=== PATIENT | female | born 1995 | race African-American/Black ===

== ENCOUNTER 2018-10-12 19:03 | Emergency (ER) | payer OTHER ==
[~2018-10-12] VITALS: Ht 167.6 cm; Wt 61.2 kg
[2018-10-12 19:36] LABS: URINE BILIRUBIN NEGATIVE (Negative); URINE BLOOD NEGATIVE (Negative); URINE CLARITY CLEAR; URINE COLOR YELLOW; URINE GLUCOSE-RANDOM* NEGATIVE (Negative); URINE KETONES NEGATIVE (Negative); URINE LEUKOCYTES-REFLEX NEGATIVE (Negative); URINE NITRITE-REFLEX NEGATIVE (Negative); URINE PROTEIN (DIPSTICK) NEGATIVE (Negative); URINE UROBILINOGEN 0.2 E.U./dl (0.2-1.0)
[2018-10-12 19:42] LABS: ABSOLUTE NEUTROPHILS 3.3 thou/uL (1.4-8.2); BASOPHILS 1.1 % (0.0-2.0); EOSINOPHILS 1.1 % (0.0-3.0); HEMATOCRIT 39.4 % (37.0-47.0); HEMOGLOBIN 13.5 gm/dL (12.0-15.0); LYMPHOCYTES 36.1 % (24.0-44.0); MCH 30.2 pg (26.0-34.0); MCHC 34.3 g/dL (28.0-37.0); MONOCYTES 10.2 % (1.0-8.0); PLATELET COUNT 188 thou/uL (150-400); POLYS 51.5 % (36.0-66.0); RBC 4.48 mil/uL (4.20-5.00); RDW 13.2 % (10.5-14.5); WBC 6.4 thou/uL (4.0-11.0)
[2018-10-12 19:48] LABS: CALCIUM 9.2 mg/dL (8.5-10.1); CREATININE 0.7 mg/dL (0.6-1.0); POTASSIUM 3.9 mmol/L (3.5-5.1)
[2018-10-12 19:54] LABS: ALBUMIN 4.1 g/dL (3.4-5.0); TOTAL BILIRUBIN 0.5 mg/dL (<0.1-1.0); TOTAL PROTEIN 7.6 g/dL (6.4-8.2)
[2018-10-12] MEDS ORDERED: FIBERCON625 MG PO (20:09)
[2018-10-12] MEDS ORDERED: ZOFRAN ODT4 MG PO (20:09)
[2018-10-12] MEDS ORDERED: PROTONIX40 M1 PO (20:09)
[2018-10-12 20:27] VITALS: BP 113/64
== END 2018-10-12 20:27 | disposition home or self-care (01) ==
LOC: ER 19:03
PROVIDERS: Emergency Medicine
DX: K59.00 Constipation, unspecified (principal); R11.2 Nausea with vomiting, unspecified

== ENCOUNTER 2018-11-05 06:50 | Emergency (ER) | payer OTHER ==
[~2018-11-05] VITALS: Ht 167.6 cm; Wt 61.2 kg
[~2018-11-05 06:50] MED LIST: FIBERCON625 MG PO; PROTONIX40 M1 PO; ZOFRAN ODT4 MG PO
[2018-11-05 06:53] VITALS: BP 113/70
[2018-11-05 07:16] LABS: URINE BILIRUBIN NEGATIVE (Negative); URINE BLOOD TRACE (Negative); URINE CLARITY CLEAR; URINE COLOR YELLOW; URINE GLUCOSE-RANDOM* NEGATIVE (Negative); URINE KETONES NEGATIVE (Negative); URINE LEUKOCYTES-REFLEX NEGATIVE (Negative); URINE NITRITE-REFLEX NEGATIVE (Negative); URINE PROTEIN (DIPSTICK) NEGATIVE (Negative); URINE UROBILINOGEN 0.2 E.U./dl (0.2-1.0)
[2018-11-05] MEDS ORDERED: PREDNISONE 20 M20 MG PO (07:39)
== END 2018-11-05 07:55 | disposition home or self-care (01) ==
LOC: ER 06:50
PROVIDERS: Emergency Medicine
DX: N76.0 Acute vaginitis (principal)

== ENCOUNTER 2018-11-16 19:51 | Emergency (ER) | payer OTHER ==
[~2018-11-16] VITALS: Ht 167.6 cm; Wt 59.0 kg
[~2018-11-16 19:51] MED LIST changes: +PREDNISONE 20 M20 MG PO
[2018-11-16 21:56] LABS: ABSOLUTE NEUTROPHILS 2.8 thou/uL (1.4-8.2); BASOPHILS 1.4 % (0.0-2.0); EOSINOPHILS 1.4 % (0.0-3.0); LYMPHOCYTES 38.9 % (24.0-44.0); MCHC 34.3 g/dL (28.0-37.0); MCV 87.4 fL (80.0-100.0); MONOCYTES 7.9 % (1.0-8.0); PLATELET COUNT 188 thou/uL (150-400); POLYS 50.4 % (36.0-66.0); RBC 4.34 mil/uL (4.20-5.00); RDW 12.5 % (10.5-14.5); WBC 5.6 thou/uL (4.0-11.0)
[2018-11-16 22:06] LABS: ANION GAP 7 mmol/L (7-16); BUN 12 mg/dL (7-18); CHLORIDE 106 mmol/L (98-107); CO2 27 mmol/L (21-32); CREATININE 0.9 mg/dL (0.6-1.0); GLUCOSE 89 mg/dL (74-106); POTASSIUM 4.2 mmol/L (3.5-5.1); SODIUM 140 mmol/L (136-145)
[2018-11-16 22:12] LABS: ALBUMIN 3.8 g/dL (3.4-5.0); DIRECT BILIRUBIN < 0.1 mg/dL (<0.1-0.3); LIPASE 98 U/L (73-393); SGOT 11 U/L (15-37); SGPT 15 U/L (30-65); TOTAL BILIRUBIN 0.2 mg/dL (<0.1-1.0); TOTAL PROTEIN 7.2 g/dL (6.4-8.2)
[2018-11-16 23:22] VITALS: BP 108/70
--- NOTE | 2018-11-17 13:20 | EKG ---
[address] [address] ELECTROCARDIOGRAM REPORT Name: FANY BLACK Room #: DEP [facility]#: [id number] Admission: 11/16/18 Attend Phys: Discharge: 11/16/18 Date of : [birth year] Report #: [id number] THIS REPORT FOR: //name// [facility] ED Test Date: 2018-11-16 Test Time: 21:39:11 Pat Name: FANY BLACK Department: Room: Gender: F Pattern Scratcher: MAYRA : 1995 Requested By: Jenn Coley Order Number: [id number] MD: Luciano Pittman Measurements Intervals Bruce Rate: 63 P: 56 IL: 191 QRS: 58 QRSD: 81 T: 54 QT: 389 QTc: 399 Interpretive Statements Sinus rhythm RSR' in V1 or V2, probably normal variant No previous ECG available for comparison Electronically Signed On 11-17-2018 13:20:06 CDT by Luciano Pittman [email or web address] <ELECTRONICALLY SIGNED> By: Luciano Pittman MD, [facility] 11/17/18 1320 2139 38 Luciano Pittman MD, FACC /EPI
== END 2018-11-16 23:26 | disposition home or self-care (01) ==
LOC: ER 19:51
PROVIDERS: Emergency Medicine
DX: K62.5 Hemorrhage of anus and rectum (principal); R00.2 Palpitations; R07.89 Other chest pain; N92.0 Excessive and frequent menstruation with regular cycle

== ENCOUNTER 2018-11-25 09:54 | Emergency (ER) | payer OTHER ==
[~2018-11-25] VITALS: Ht 167.6 cm; Wt 59.0 kg
[2018-11-25 10:14] LABS: URINE BILIRUBIN NEGATIVE (Negative); URINE BLOOD NEGATIVE (Negative); URINE CLARITY CLEAR; URINE COLOR YELLOW; URINE GLUCOSE-RANDOM* NEGATIVE (Negative); URINE KETONES NEGATIVE (Negative); URINE LEUKOCYTES-REFLEX NEGATIVE (Negative); URINE NITRITE-REFLEX NEGATIVE (Negative); URINE PROTEIN (DIPSTICK) NEGATIVE (Negative); URINE UROBILINOGEN 0.2 E.U./dl (0.2-1.0)
== END 2018-11-25 10:33 | disposition home or self-care (01) ==
LOC: ER 09:54
PROVIDERS: Emergency Medicine
DX: R30.0 Dysuria (principal); D57.3 Sickle-cell trait

== ENCOUNTER 2019-02-11 21:02 | Emergency (ER) | payer OTHER ==
[~2019-02-11] VITALS: Ht 165.1 cm; Wt 61.2 kg
[2019-02-11] MEDS ORDERED: METRONIDAZOLE500 M4 PO (21:08)
[2019-02-11 21:11] VITALS: BP 121/70
== END 2019-02-11 22:05 | disposition home or self-care (01) ==
LOC: ER 21:02
DX: R51 Headache (principal); D57.3 Sickle-cell trait

== ENCOUNTER 2019-03-12 18:44 | Emergency (ER) | payer OTHER ==
[~2019-03-12] VITALS: Ht 167.6 cm; Wt 56.7 kg
[~2019-03-12 18:44] MED LIST changes: +METRONIDAZOLE500 M4 PO
[2019-03-12] MEDS ORDERED: IBUPROFEN 800800 M1 PO (19:22)
[2019-03-12] MEDS ORDERED: CLARITIN-D 121 EAC1 PO (19:22)
[2019-03-12 19:52] VITALS: BP 120/66
== END 2019-03-12 19:54 | disposition home or self-care (01) ==
LOC: ER 18:44
DX: J06.9 Acute upper respiratory infection, unspecified (principal)

== ENCOUNTER 2019-04-16 19:41 | Emergency (ER) | payer OTHER ==
[~2019-04-16] VITALS: Ht 167.6 cm; Wt 62.1 kg
[~2019-04-16 19:41] MED LIST changes: +CLARITIN-D 121 EAC1 PO; +IBUPROFEN 800800 M1 PO
[2019-04-16 20:08] LABS: URINE BILIRUBIN NEGATIVE (Negative); URINE BLOOD NEGATIVE (Negative); URINE CLARITY CLEAR; URINE COLOR YELLOW; URINE GLUCOSE-RANDOM* NEGATIVE (Negative); URINE KETONES NEGATIVE (Negative); URINE LEUKOCYTES-REFLEX TRACE (Negative); URINE NITRITE-REFLEX NEGATIVE (Negative); URINE PROTEIN (DIPSTICK) NEGATIVE (Negative); URINE UROBILINOGEN 0.2 E.U./dl (0.2-1.0)
[2019-04-16] MEDS ORDERED: FLAGYL500 M1 PO (21:25)
[2019-04-16] MEDS ORDERED: ONDANSETRON HCL4 M2 PO (21:30)
[2019-04-16 21:36] VITALS: BP 123/62
== END 2019-04-16 21:37 | disposition home or self-care (01) ==
LOC: ER 19:41
PROVIDERS: Physician Assistant
DX: N76.0 Acute vaginitis (principal)

== ENCOUNTER 2019-05-05 08:22 | Emergency (ER) | payer OTHER ==
[~2019-05-05] VITALS: Ht 167.6 cm; Wt 62.1 kg
[~2019-05-05 08:22] MED LIST changes: +FLAGYL500 M1 PO; +ONDANSETRON HCL4 M2 PO
[2019-05-05] MEDS ORDERED: MUCINEX D ER 11 EACH PO (09:55)
[2019-05-05] MEDS ORDERED: AFRIN15 ML NASAL (09:55)
[2019-05-05] MEDS ORDERED: ZOFRAN ODT4 MG PO (09:55)
[2019-05-05 10:12] VITALS: BP 110/67
== END 2019-05-05 10:14 | disposition home or self-care (01) ==
LOC: ER 08:22
DX: J06.9 Acute upper respiratory infection, unspecified (principal); R05 Cough; R11.0 Nausea

== ENCOUNTER 2019-06-08 17:23 | Emergency (ER) | payer OTHER ==
[~2019-06-08] VITALS: Ht 167.6 cm; Wt 62.1 kg
[~2019-06-08 17:23] MED LIST changes: +AFRIN15 ML NASAL; +MUCINEX D ER 11 EACH PO
[2019-06-08 18:20] VITALS: BP 115/76
[2019-06-08] MEDS ORDERED: NOHOMEMEDICATIONS (18:34)
== END 2019-06-08 18:30 | disposition home or self-care (01) ==
LOC: ER 17:23
DX: L50.9 Urticaria, unspecified (principal)

== ENCOUNTER 2019-06-27 20:19 | Emergency (ER) | payer OTHER ==
[~2019-06-27] VITALS: Ht 167.6 cm; Wt 61.2 kg
[~2019-06-27 20:19] MED LIST changes: +NOHOMEMEDICATIONS
[2019-06-27 20:39] LABS: URINE BILIRUBIN NEGATIVE (Negative); URINE BLOOD TRACE (Negative); URINE CLARITY CLEAR; URINE COLOR YELLOW; URINE GLUCOSE-RANDOM* NEGATIVE (Negative); URINE KETONES NEGATIVE (Negative); URINE NITRITE-REFLEX NEGATIVE (Negative); URINE PROTEIN (DIPSTICK) NEGATIVE (Negative); URINE SPECIFIC GRAVITY 1.015 (1.005-1.035); URINE UROBILINOGEN 0.2 E.U./dl (0.2-1.0)
[2019-06-27 20:45] LABS: URINE LEUKOCYTES-REFLEX 2+ (Negative)
[2019-06-27 20:58] LABS: CASTS None Seen /LPF (None Seen); CRYSTALS None Seen /LPF (None Seen); SQUAMOUS 0-3 Few /LPF (0-3); URINE RBC 0-2 Rare /HPF (0-2); URINE WBC-REFLEX 6-15 Few /HPF (0-5)
[2019-06-27] MEDS ORDERED: KEFLEX500 M1 PO (21:59)
[2019-06-27 22:13] VITALS: BP 126/71
== END 2019-06-27 22:15 | disposition home or self-care (01) ==
LOC: ER 20:19
PROVIDERS: Physician Assistant
DX: N89.8 Other specified noninflammatory disorders of vagina (principal); N39.0 Urinary tract infection, site not specified; L29.2 Pruritus vulvae; I25.2 Old myocardial infarction; Z68.41 Body mass index [BMI] 40.0-44.9, adult